=== PATIENT | male | born 1965 | race Caucasian/White ===

== ENCOUNTER 2017-05-31 11:09 | Emergency (ER) | payer OTHER, MEDICARE ==
[~2017-05-31] VITALS: Ht 175.3 cm; Wt 99.8 kg
[2017-05-31] MEDS ORDERED: Percocet 5-3251 EACH PO (13:24)
[2017-05-31] MEDS ORDERED: IBUP600 PO (13:24)
== END 2017-05-31 14:25 | disposition home or self-care (01) ==
LOC: ER 11:09
DX: S16.1XXA Strain of muscle, fascia and tendon at neck level, initial encounter (principal); M54.5 Low back pain; Z98.890 Other specified postprocedural states; V47.5XXA Car driver injured in collision with fixed or stationary object in traffic accident, initial encounter; Y92.411 Interstate highway as the place of occurrence of the external cause
CPT/HCPCS: 72040; 72100; 96374; 96375; 96376; 99284; J1170; J2405; J7030

== ENCOUNTER 2017-06-04 11:55 | Emergency (ER) | payer OTHER, MEDICARE ==
[~2017-06-04] VITALS: Ht 175.3 cm; Wt 104.3 kg
[~2017-06-04 11:55] MED LIST: IBUP600 PO; Percocet 5-3251 EACH PO
[2017-06-04] MEDS ORDERED: Percocet 10-321 EACH PO (13:40)
[2017-06-04] MEDS ORDERED: Robaxin-750750 MG PO (13:40)
[2017-06-04] MEDS ORDERED: METPRE4DP PO (13:40)
== END 2017-06-04 14:13 | disposition home or self-care (01) ==
LOC: ER 11:55
DX: M54.16 Radiculopathy, lumbar region (principal)
CPT/HCPCS: 36415; 96374; 96375; 99283; J1100; J1170; J2405

== ENCOUNTER 2019-06-16 13:37 | Emergency (ER) | payer MEDICARE ==
[~2019-06-16] VITALS: Ht 175.3 cm; Wt 113.4 kg
[~2019-06-16 13:37] MED LIST changes: +METPRE4DP PO; +Percocet 10-321 EACH PO; +Robaxin-750750 MG PO
[2019-06-16] MEDS ORDERED: Cymbalta20 MG PO (13:47)
[2019-06-16] MEDS ORDERED: PREGABALIN25 MG PO (13:47)
[2019-06-16] MEDS ORDERED: CYCL10 PO (13:48)
[2019-06-16 15:30] LABS: BASOPHILS ABSOLUTE AUTO 0.05 K/mm3 (0.00-0.23); BASOPHILS PERCENT AUTO 1 % (0-2); EOSINOPHILS ABSOLUTE AUTO 0.04 K/mm3 (0.00-0.68); EOSINOPHILS PERCENT AUTO 0 % (0-6); Hematocrit 38.9 % (37.0-53.0); Hemoglobin 12.7 g/dL (13.5-17.5); IMMATURE GRAN ABSOLUTE AUTO 0.02 K/mm3 (0.00-0.10); IMMATURE GRAN PERCENT AUTO 0 % (0-1); LYMPHOCYTES ABSOLUTE AUTO 1.55 K/mm3 (0.84-5.20); LYMPHOCYTES PERCENT AUTO 16 % (21-46); MONOCYTES ABSOLUTE AUTO 0.57 K/mm3 (0.16-1.47); MONOCYTES PERCENT AUTO 6 % (4-13); Mean Corpuscular HGB 27.5 pg (26.0-34.0); Mean Corpuscular HGB Conc 32.6 g/dL (31.5-36.5); Mean Corpuscular Volume 84 fL (80-100); Mean Platelet Volume 9.8 fL (9.1-12.4); NEUTROPHILS ABSOLUTE AUTO 7.78 K/mm3 (1.96-9.15); NEUTROPHILS PERCENT AUTO 78 % (41-73); Platelet Count 281 K/mm3 (150-400); RDW Coefficient Variation 13.6 % (11.7-14.2); RDW Standard Deviation 42.5 fL (35.1-46.3); Red Blood Cell Count 4.61 M/mm3 (4.30-5.90); White Blood Cell Count 10.01 K/mm3 (4.00-11.30)
[2019-06-16 15:43] LABS: Alanine Aminotransfer (ALT/SGP 47 U/L (12-78); Albumin, Blood 3.7 g/dL (3.4-5.0); Albumin/Globulin Ratio 1.1 (0.8-1.8); Alk Phos 62 U/L (50-136); Anion Gap 7 mmol/L (6-16); Aspartate Aminotrans (AST/SGOT 36 U/L (12-37); Bilirubin, Total 0.2 mg/dL (0.1-1.0); Blood Urea Nitrogen 21 mg/dL (8-24); Bun/Creatinine Ratio 17.8 (12.0-20.0); CO2, Blood 25 mmol/L (21-32); Calcium, Blood 8.8 mg/dL (8.5-10.1); Chloride, Blood 111 mmol/L (98-108); Creatinine, Blood 1.18 mg/dL (0.60-1.20); Globulin, Blood 3.4 g/dL (2.2-4.0); Glomerular Filtration Rate >60 (60-); Glucose, Blood 133 mg/dL (70-99); Potassium, Blood 4.1 mmol/L (3.5-5.5); Sodium, Blood 143 mmol/L (136-145); Total Protein, Blood 7.1 g/dL (6.4-8.2)
[2019-06-16] MEDS ORDERED: Percocet 5-3251 EACH PO (15:57)
[2019-06-16] MEDS ORDERED: ONDA4ODT SL (15:57)
[2019-06-16] MEDS ORDERED: IBUP400 PO (15:57)
== END 2019-06-16 16:30 | disposition home or self-care (01) ==
LOC: ER 13:37
PROVIDERS: Emergency Medicine
DX: N13.2 Hydronephrosis with renal and ureteral calculous obstruction (principal); F17.210 Nicotine dependence, cigarettes, uncomplicated; Z79.899 Other long term (current) drug therapy
CPT/HCPCS: 36415; 74176; 80053; 85025; 93005; 93010; J1170; J1885; J2405; J7030

== ENCOUNTER 2019-06-18 19:25 | Emergency (ER) | payer MEDICARE ==
[~2019-06-18] VITALS: Ht 175.3 cm; Wt 113.4 kg
[~2019-06-18 19:25] MED LIST changes: +CYCL10 PO; +Cymbalta20 MG PO; +IBUP400 PO; +ONDA4ODT SL; +PREGABALIN25 MG PO
[2019-06-18 20:28] LABS: BASOPHILS ABSOLUTE AUTO 0.04 K/mm3 (0.00-0.23); BASOPHILS PERCENT AUTO 0 % (0-2); EOSINOPHILS ABSOLUTE AUTO 0.08 K/mm3 (0.00-0.68); EOSINOPHILS PERCENT AUTO 1 % (0-6); Hematocrit 42.3 % (37.0-53.0); Hemoglobin 13.6 g/dL (13.5-17.5); IMMATURE GRAN ABSOLUTE AUTO 0.03 K/mm3 (0.00-0.10); IMMATURE GRAN PERCENT AUTO 0 % (0-1); LYMPHOCYTES ABSOLUTE AUTO 2.02 K/mm3 (0.84-5.20); LYMPHOCYTES PERCENT AUTO 15 % (21-46); MONOCYTES ABSOLUTE AUTO 0.87 K/mm3 (0.16-1.47); MONOCYTES PERCENT AUTO 6 % (4-13); Mean Corpuscular HGB 27.3 pg (26.0-34.0); Mean Corpuscular HGB Conc 32.2 g/dL (31.5-36.5); Mean Corpuscular Volume 85 fL (80-100); Mean Platelet Volume 9.8 fL (9.1-12.4); NEUTROPHILS ABSOLUTE AUTO 10.56 K/mm3 (1.96-9.15); NEUTROPHILS PERCENT AUTO 78 % (41-73); Platelet Count 274 K/mm3 (150-400); RDW Coefficient Variation 13.5 % (11.7-14.2); RDW Standard Deviation 42.2 fL (35.1-46.3); Red Blood Cell Count 4.98 M/mm3 (4.30-5.90)
[2019-06-18 20:45] LABS: Alanine Aminotransfer (ALT/SGP 44 U/L (12-78); Albumin, Blood 3.8 g/dL (3.4-5.0); Alk Phos 65 U/L (50-136); Anion Gap 8 mmol/L (6-16); Aspartate Aminotrans (AST/SGOT 28 U/L (12-37); Bilirubin, Total 0.2 mg/dL (0.1-1.0); Blood Urea Nitrogen 14 mg/dL (8-24); CO2, Blood 27 mmol/L (21-32); Calcium, Blood 9.1 mg/dL (8.5-10.1); Chloride, Blood 105 mmol/L (98-108); Creatinine, Blood 1.27 mg/dL (0.60-1.20); Globulin, Blood 3.7 g/dL (2.2-4.0); Glomerular Filtration Rate >60 (60-); Glucose, Blood 101 mg/dL (70-99); Potassium, Blood 3.8 mmol/L (3.5-5.5); Sodium, Blood 140 mmol/L (136-145); Total Protein, Blood 7.5 g/dL (6.4-8.2)
[2019-06-18 22:34] LABS: Source, Urine Clean Catch
[2019-06-18 22:40] LABS: Appearance, Urine Clear (Clear); Bilirubin, Urine Neg (Neg); Blood, Urine 1+ (Neg); Color, Urine Yellow (P-Yellow); Glucose Qualitative, Urine Neg (Neg); Ketones, Urine 1+ (Neg); Leukocyte Esterase, Urine Neg (Neg); Nitrite, Urine Neg (Neg); Protein, Urine Neg (Neg); Specific Gravity, Urine 1.005 (1.003-1.022); Urobilinogen, Urine NORM (Normal)
[2019-06-18 22:47] LABS: Bacteria Few /hpf; Red Blood Cells, Urine 0-2 /hpf (0-2); Squamous Epithelial Cells Not Seen /hpf (Few); White Blood Cells, Urine 0-2 /hpf (0-5)
[2019-06-18] MEDS ORDERED: Percocet 5-3251 EACH PO (23:32)
[2019-06-18] MEDS ORDERED: IBUP400 PO (23:32)
== END 2019-06-18 23:57 | disposition home or self-care (01) ==
LOC: ER 19:25
PROVIDERS: Emergency Medicine
DX: N20.1 Calculus of ureter (principal); M54.9 Dorsalgia, unspecified; G89.29 Other chronic pain; Z79.899 Other long term (current) drug therapy
CPT/HCPCS: 36415; 76770; 80053; 81001; 85025; 96361; 96374; 96375; 96376; 99284-25; A9270; J1170; J1885; J2405; J7030

== ENCOUNTER 2020-10-06 14:51 | Emergency (ER) | payer MEDICARE ==
[~2020-10-06] VITALS: Ht 175.3 cm; Wt 113.4 kg
== END 2020-10-06 16:28 | disposition home or self-care (01) ==
LOC: ER 14:51
DX: S92.902A Unspecified fracture of left foot, initial encounter for closed fracture (principal); F17.210 Nicotine dependence, cigarettes, uncomplicated; Z79.899 Other long term (current) drug therapy; X58.XXXA Exposure to other specified factors, initial encounter; Y93.39 Activity, other involving climbing, rappelling and jumping off
CPT/HCPCS: 73630; 99283-25

== ENCOUNTER 2022-10-29 15:17 | Emergency (ER) | payer MEDICARE ==
[~2022-10-29] VITALS: Ht 175.3 cm; Wt 122.5 kg
[2022-10-29 15:24] VITALS: BP 142/99
[2022-10-29] MEDS ORDERED: AMOCLA875 PO (17:02)
== END 2022-10-29 17:10 | disposition home or self-care (01) ==
LOC: ER 15:17
DX: S81.811A Laceration without foreign body, right lower leg, initial encounter (principal); Z23 Encounter for immunization; F17.210 Nicotine dependence, cigarettes, uncomplicated; W22.8XXA Striking against or struck by other objects, initial encounter
CPT/HCPCS: 73590; 90714; 90715

== ENCOUNTER 2022-12-26 01:43 | Day surgery (SDC) | payer MEDICARE ==
[~2022-12-26 01:43] MED LIST changes: +AMOCLA875 PO
== END 2022-12-26 23:35 | disposition home or self-care (01) ==
LOC: WOUND 01:43
DX: I87.311 Chronic venous hypertension (idiopathic) with ulcer of right lower extremity (principal); L97.812 Non-pressure chronic ulcer of other part of right lower leg with fat layer exposed; I87.2 Venous insufficiency (chronic) (peripheral)
CPT/HCPCS: A9270; G0463

== ENCOUNTER 2022-12-30 00:25 | Day surgery (SDC) | payer MEDICARE | END 2022-12-30 22:52 | disposition home or self-care (01) | LOC: WOUND 00:25 | DX: I87.311 Chronic venous hypertension (idiopathic) with ulcer of right lower extremity (principal); L97.812 Non-pressure chronic ulcer of other part of right lower leg with fat layer exposed; I73.9 Peripheral vascular disease, unspecified | CPT/HCPCS: A9270; G0463 ==

== ENCOUNTER 2022-12-31 01:35 | Day surgery (SDC) | payer MEDICARE | END 2022-12-31 22:39 | disposition home or self-care (01) | LOC: WOUND 01:35 | DX: I87.311 Chronic venous hypertension (idiopathic) with ulcer of right lower extremity (principal); L97.812 Non-pressure chronic ulcer of other part of right lower leg with fat layer exposed; I87.2 Venous insufficiency (chronic) (peripheral); I73.9 Peripheral vascular disease, unspecified ==

== ENCOUNTER 2023-01-06 00:55 | Day surgery (SDC) | payer MEDICARE | END 2023-01-07 23:01 | disposition home or self-care (01) | LOC: WOUND 00:55 | DX: I87.311 Chronic venous hypertension (idiopathic) with ulcer of right lower extremity (principal); L97.819 Non-pressure chronic ulcer of other part of right lower leg with unspecified severity; I73.9 Peripheral vascular disease, unspecified ==

== ENCOUNTER 2023-01-16 04:03 | Day surgery (SDC) | payer MEDICARE | END 2023-01-16 22:45 | disposition home or self-care (01) | LOC: WOUND 04:03 | DX: I87.311 Chronic venous hypertension (idiopathic) with ulcer of right lower extremity (principal); L97.812 Non-pressure chronic ulcer of other part of right lower leg with fat layer exposed; I87.2 Venous insufficiency (chronic) (peripheral); I73.9 Peripheral vascular disease, unspecified ==

== ENCOUNTER 2023-01-23 05:29 | Day surgery (SDC) | payer MEDICARE | END 2023-01-23 22:50 | disposition home or self-care (01) | LOC: WOUND 05:29 | DX: I87.311 Chronic venous hypertension (idiopathic) with ulcer of right lower extremity (principal); L97.812 Non-pressure chronic ulcer of other part of right lower leg with fat layer exposed; I73.9 Peripheral vascular disease, unspecified ==

== ENCOUNTER → 2023-07-07 | Outpatient (CLI) | payer MEDICARE ==
[2023-07-07 15:10] LABS: BASOPHILS ABSOLUTE AUTO 0.07 K/mm3 (0.00-0.23); BASOPHILS PERCENT AUTO 1 % (0-2); EOSINOPHILS ABSOLUTE AUTO 0.28 K/mm3 (0.00-0.68); EOSINOPHILS PERCENT AUTO 4 % (0-6); Hematocrit 47.7 % (37.0-53.0); Hemoglobin 15.6 g/dL (13.5-17.5); IMMATURE GRAN ABSOLUTE AUTO 0.01 K/mm3 (0.00-0.10); IMMATURE GRAN PERCENT AUTO 0 % (0-1); LYMPHOCYTES ABSOLUTE AUTO 2.34 K/mm3 (0.84-5.20); LYMPHOCYTES PERCENT AUTO 37 % (21-46); MONOCYTES ABSOLUTE AUTO 0.37 K/mm3 (0.16-1.47); MONOCYTES PERCENT AUTO 6 % (4-13); Mean Corpuscular HGB 26.8 pg (26.0-34.0); Mean Corpuscular HGB Conc 32.7 g/dL (31.5-36.5); Mean Corpuscular Volume 82 fL (80-100); NEUTROPHILS ABSOLUTE AUTO 3.28 K/mm3 (1.96-9.15); NEUTROPHILS PERCENT AUTO 52 % (41-73); RDW Coefficient Variation 13.9 % (11.7-14.2); RDW Standard Deviation 40.4 fL (35.1-46.3); Red Blood Cell Count 5.82 M/mm3 (4.30-5.90); White Blood Cell Count 6.35 K/mm3 (4.00-11.30)
[2023-07-07 15:20] LABS: C-REACTIVE PROTEIN, EXT RANGE <0.290 mg/dL (0.000-0.300)
[2023-07-07 15:24] LABS: CHOL/HDL RATIO 3.6; Cholesterol 189 mg/dL (50-200); Free Thyroxine 0.79 ng/dL (0.70-1.60); HDL Cholesterol 52 mg/dL (>39); LDL/HDL RATIO 2.1; Low Density Lipoprotein Chol 112 mg/dL (0-110); Triglycerides 127 mg/dL (30-160); Very Low Density Lipoprot Chol 25 mg/dL (6-32)
[2023-07-07 15:30] LABS: Triiodothyronine, Free 3.03 pg/mL (2.18-3.98)
[2023-07-07 15:35] LABS: Mean Platelet Volume 10.2 fL (9.1-12.4); Platelet Count 305 K/mm3 (150-400)
[2023-07-08 18:33] LABS: THYROGLOBULIN ANTIBODY 26.3 IU/mL (0.0-4.0); THYROID PEROXIDASE (TPO) AB 304.2 IU/mL (0.0-9.0)
== END | disposition home or self-care (01) ==
LOC: LAB SHORT 13:09 → LAB 13:09
PROVIDERS: Family Medicine
DX: Z13.6 Encounter for screening for cardiovascular disorders (principal); S81.801D Unspecified open wound, right lower leg, subsequent encounter; R94.6 Abnormal results of thyroid function studies
CPT/HCPCS: 80061; 84439; 84443; 84481; 85025; 85651; 86140; 86376; 86800